=== PATIENT | female | born 1985 | race African-American/Black ===

== ENCOUNTER 2021-09-05 19:28 | Emergency (ER) | payer OTHER ==
[~2021-09-05] VITALS: Ht 170.2 cm; Wt 102.3 kg
[2021-09-05 21:28] LABS: CLARITY URINE CLOUDY (CLEAR); COLOR URINE RED (YELLOW); KETONES URINE NEGATIVE (NEGATIVE); LEUKOCYTE ESTERASE URINE 1+ (NEGATIVE); NITRITE URINE NEGATIVE (NEGATIVE); OCCULT BLOOD URINE 3+ (NEGATIVE); PH URINE 6.5 (4.5-8.0); PROTEIN URINE 1+ (NEGATIVE); SPECIFIC GRAVITY URINE 1.024 (1.005-1.030)
[2021-09-05 21:43] LABS: BASOPHILS % 0.6 % (0.0-2.0); EOSINOPHILS % 1.2 % (0.0-5.0); HEMATOCRIT. 38.6 % (36.0-48.0); HEMOGLOBIN. 12.7 g/dL (12.0-16.0); LYMPHOCYTES % 22.1 % (20.0-50.0); MEAN CORPUSCULAR HEMOGLOBIN 30.6 pg (28.0-32.0); MEAN CORPUSCULAR VOLUME 93.4 fL (81.0-99.0); MEAN PLATELET VOLUME 8.1 fl (7.4-10.4); MONOCYTES % 8.6 % (2.0-8.0); NEUTROPHILS % 67.5 % (40.0-76.0); PLATELET 232 x1000/uL (130-400); RED BLOOD CELL COUNT 4.13 mill/uL (4.2-5.4)
[2021-09-05 21:52] LABS: CHLORIDE 107 mEq/L (98-107)
[2021-09-05 22:13] LABS: B-HCG QUANTITATIVE 6453 mIU/mL (<3)
[2021-09-05] MEDS ORDERED: MISOPROSTOL 200MCG TABLET PO ONE (23:45)
[2021-09-05] MEDS ORDERED: IBUPROFEN 400MG TABLET PO ONE (23:45)
[2021-09-06] MEDS ORDERED: METH PO (01:15)
== END 2021-09-06 01:33 | disposition home or self-care (01) ==
LOC: ER 19:28
DX: O03.9 Complete or unspecified spontaneous abortion without complication (principal)
CPT/HCPCS: 36415; 76801; 80053; 81003; 81025; 84702; 85025; 86850; 86900; 99284

== ENCOUNTER 2022-02-04 12:51 | Emergency (ER) | payer OTHER ==
[~2022-02-04] VITALS: Ht 170.2 cm; Wt 75.5 kg
[~2022-02-04 12:51] MED LIST: METH PO
[2022-02-04 13:03] VITALS: BP 134/83
[2022-02-04 14:48] LABS: BASOPHILS % 0.5 % (0.0-2.0); EOSINOPHILS % 1.3 % (0.0-5.0); HEMATOCRIT. 34.6 % (36.0-48.0); HEMOGLOBIN. 11.5 g/dL (12.0-16.0); MEAN CORPUSCULAR HEMOGLOBIN 29.9 pg (28.0-32.0); MEAN CORPUSCULAR VOLUME 90.6 fL (81.0-99.0); MEAN PLATELET VOLUME 8.1 fl (7.4-10.4); MONOCYTES % 9.7 % (2.0-8.0); NEUTROPHILS % 67.5 % (40.0-76.0); PLATELET 237 x1000/uL (130-400); RED BLOOD CELL COUNT 3.83 mill/uL (4.2-5.4); RED CELL DISTRIBUTION WIDTH 15.3 % (11.6-14.6)
[2022-02-04 15:11] LABS: CHLORIDE 107 mEq/L (98-107)
[2022-02-04 15:42] LABS: B-HCG QUANTITATIVE 25392 mIU/mL (<3)
== END 2022-02-04 17:49 | disposition home or self-care (01) ==
LOC: ER 13:22
DX: O26.891 Other specified pregnancy related conditions, first trimester (principal); O36.4XX0 Maternal care for intrauterine death, not applicable or unspecified; Z3A.08 8 weeks gestation of pregnancy
CPT/HCPCS: 36415; 76801; 80053; 81025; 84702; 85025; 99284